=== PATIENT | male | born 1970 | race Caucasian/White ===

== ENCOUNTER 2024-01-03 12:25 | Emergency (ER) | payer OTHER, SELFPAY ==
--- NOTE | 2024-01-03 12:34 | ED.GENMED ---
ED Provider Triage
<Rebekah Estrella PA-C - Last Filed: 01/03/24 12:38>
-
Patient seen by provider in Triage?: Seen in Triage
Attestation: A medical screening examination has been initiated by a qualified medical provider. Based on the assessment performed at this time, it has been determined that an emergent medical condition may exist and the patient has been informed
that further medical evaluation and possible additional diagnostic testing may be needed.
HPI: 53yoM here with lightheadedness, chest pressure, and fatigue since yesterday. Feels like heart is racing intermittently. Sent here by urgent care. Hx of HLD on Lipitor.
GENERAL: Alert , in no apparent distress
EYE: No visual abnormalities.
NECK: Trachea midline
ENT: No visible abnormalities.
LUNGS: No acute respiratory distress
NEUROLOGICAL: Alert and oriented
SKIN: Skin intact. No visible changes.
MUSCULOSKELETAL: Moving extremities normally
PSYCH: Normal and appropriate interaction.
This is a medical evaluation conducted in person to initiate diagnostic evaluation and provide initial therapeutics. Please see further documentation by the treating clinician.
Cardiac labs, magnesium, TSH, EKG, and CXR ordered.
History of Present Illness
<Rebekah Estrella PA-C - Last Filed: 01/03/24 12:38>
General
Chief Complaint: Chest Pain
Time Seen by Provider: 01/03/24 15:33
<Kumar Torres DO - Last Filed: 01/03/24 19:27>
History of Present Illness
History of Present Illness:
TIME OF INITIAL ENCOUNTER: 3:30 PM
HPI:
Yesterday, the patient's been having lightheadedness as well as some intermittent chest pressure for the past 30 hours. At times symptoms are related to exertion. He currently still has a little bit of discomfort in the chest. He has a history of
hyperlipidemia but does not have a history of hypertension. He thinks that his mother had a cardiac episode in her 70s. He had some associated palpitations as well.
EXAM:
GENERAL: Well appearing in no distress, athletic build, very well-appearing
HEENT: Moist oral mucosa
CARDIOVASCULAR: No murmurs, normal heart rate, regular rhythm, No chest wall tenderness
PULMONARY: No respiratory distress, breath sounds are clear and equal
ABDOMEN: Soft with no peritoneal signs, no tenderness
NEUROLOGIC: Excellent strength all extremities, no coordination deficits
PSYCHIATRIC: Appropriate mental status, normal insight and judgement
EXTREMITIES: Nontender, no edema, moves all extremities equally
SKIN: No rash, no lesions
NUMBER AND COMPLEXITY OF PROBLEMS ADDRESSED AT THE ENCOUNTER
� Chronic conditions affecting care: Hypercholesterolemia
� Acute Exacerbation and/or Progression of Chronic Illness: This is an acute problem
� Differential Diagnosis includes: Stress, anxiety, chest wall pain, ACS, pneumonia, pneumothorax
AMOUNT AND/OR COMPLEXITY OF DATA TO BE REVIEWED AND ANALYZED
� I performed an independent evaluation of and my interpretation is:
EKG: Sinus 71, normal axis, no acute ST abnormality, LVH suggested based on R waves in V4 through V6
CT:
X-rays: Chest x-ray unremarkable
Laboratory Studies: CBC, total bili slightly elevated 2.2 with normal transaminases, troponin and TSH unremarkable
Other:
� Review of other/old records: No old records available for review in [facility]
� Clinical information was obtained by an independent historian: I spoke to the at bedside
� Prescriptions/Medications Considered but not given:
� Further testing considered but not performed:
RISK OF COMPLICATIONS AND/OR MORBIDITY OR MORTALITY OF PATIENT MANAGEMENT
� Social determinants of health affecting care: Lives at home
� Discussion with other providers:
� Escalation of care including admission/observation vs risk of discharge considered: Initial troponin EKG relatively unremarkable with exception of LVH. Checking second troponin.
ANY OTHER UPDATES:
4:50 PM: Second troponin negative. Patient has no significant change in his clinical examination and appears very well. To follow-up with cardiology closely as an outpatient.
Phy Exam
<Kumar Torres DO - Last Filed: 01/03/24 19:27>
Physical Exam
Physical Exam:
See HPI
Scores
<Kumar Torres DO - Last Filed: 01/03/24 19:27>
Heart Score for Chest Pain Patients
STEMI patient?: Not applicable
Course
<Rebekah Estrella PA-C - Last Filed: 01/03/24 12:38>
Orders/Labs/Results
Orders:
Orders
01/03/24 12:27
Electrocardiogram (*1) Urgent
Reason for Study: Chest Pain
EKG- Treatment ONCE
01/03/24 12:37
CR Chest - 2 Views Urgent
Comment:
Reason For Exam: CP
01/03/24 12:44
Complete Blood Count/With Diff Urgent
Comprehensive Metabolic Panel Urgent
Magnesium Urgent
TSH Reflex To Free T4 Urgent
Troponin I Urgent
01/03/24 15:59
Troponin I Urgent
Abnormal Lab Results
01/03/24
12:44
RBC 4.69 L 10^6/uL
(4.70-6.10)
Carbon Dioxide 31 H mmol/L
(22-30)
Glucose 104 H mg/dl
(70-99)
Total Bilirubin 2.2 H mg/dl
(0.2-1.3)
01/03/24 12:44
01/03/24 12:44
Vital Signs
Initial and Last Documented VS:
Initial Vital Signs
Temp Pulse Resp BP Pulse Ox
99.4 F 91 16 118/80 98
01/03/24 12:35 01/03/24 12:35 01/03/24 12:35 01/03/24 12:35 01/03/24 12:35
Last Documented Vital Signs
Temp Pulse Resp BP Pulse Ox
99.4 F 86 18 125/78 99
01/03/24 12:35 01/03/24 16:00 01/03/24 16:00 01/03/24 16:00 01/03/24 16:00
<Kumar Torres, DO - Last Filed: 01/03/24 19:27>
Orders/Labs/Results
Orders:
Orders
01/03/24 12:27
Electrocardiogram (*1) Urgent
Reason for Study: Chest Pain
EKG- Treatment ONCE
01/03/24 12:37
CR Chest - 2 Views Urgent
Comment:
Reason For Exam: CP
01/03/24 12:44
Complete Blood Count/With Diff Urgent
Comprehensive Metabolic Panel Urgent
Magnesium Urgent
TSH Reflex To Free T4 Urgent
Troponin I Urgent
01/03/24 15:59
Troponin I Urgent
Abnormal Lab Results
01/03/24
12:44
RBC 4.69 L 10^6/uL
(4.70-6.10)
Carbon Dioxide 31 H mmol/L
(22-30)
Glucose 104 H mg/dl
(70-99)
Total Bilirubin 2.2 H mg/dl
(0.2-1.3)
01/03/24 12:44
01/03/24 12:44
Vital Signs
Initial and Last Documented VS:
Initial Vital Signs
Temp Pulse Resp BP Pulse Ox
99.4 F 91 16 118/80 98
01/03/24 12:35 01/03/24 12:35 01/03/24 12:35 01/03/24 12:35 01/03/24 12:35
Last Documented Vital Signs
Temp Pulse Resp BP Pulse Ox
99.4 F 86 18 125/78 99
01/03/24 12:35 01/03/24 16:00 01/03/24 16:00 01/03/24 16:00 01/03/24 16:00
<Kumar Torres DO - Last Filed: 01/03/24 19:27>
*Critical Care Note
Total Time (30-74mins, 75-104mins- exclusive of procedures): Not Applicable
ED Attending Note
<Rebekah Estrella PA-C - Last Filed: 01/03/24 12:38>
-
Portions of this chart may have been created with voice recognition software.� Occasional wrong word or��sound alike� substitutions may have occurred due to the inherent limitations of voice recognition software.
Discharge Plan
Departure
Patient Disposition: Home (Routine Discharge)
Date of Disposition: 01/03/24
Time of Disposition: 16:47
Patient with high blood pressure during this ER visit?: Yes
Discharge Problem:
Chest pain
Instructions: Chest Pain CBC Follow Up, BLOOD PRESSURE
Referrals:
Silvano Hobbs MD (Ellie) [Active] - Next open appointment
Shasta Morales MD [Family Provider] -
Activity Restrictions/Additional Instructions:
Someone from Dr. Hobbs's office should be calling you for follow-up. If you not hear from them, call their office. Return here if worse or other concerns.
Interventions
Interventions:
*Risk Screen - Suicide Last Done: 01/03/24 12:35
*General Assessment Last Done: 01/03/24 12:35
*Neglect/Abuse Screening Last Done: 01/03/24 12:35
*Nursing Disposition Last Done: 01/03/24 17:15
ED- Cardiac Assessment Last Done: 01/03/24 16:01
Discharge Date and Time
Discharge Date/Time: 01/03/24 17:16
Print Language: SOMALI
[2024-01-03 12:35] VITALS: BP 118/80
[2024-01-03 12:52] LABS: % Basophils 0.4 % (0-2); % Immature Granulocytes 0.3 % (0-0.5); % Lymphocytes 39.8 % (20.5-51.1); % Monocytes 5.8 % (1.7-9.3); % Neutrophils 52.7 % (42.2-75.2); Absolute Eosinophils 0.1 10^3/uL (0-0.7); Absolute Lymphocytes 2.8 10^3/uL (1.2-3.4); Absolute Monocytes 0.4 10^3/uL (0.1-0.6); Absolute Neutrophils 3.7 10^3/uL (1.4-6.5); Hematocrit 41.7 % (39.0-52.0); Hemoglobin 14.4 g/dL (13.0-18.0); Mean Corp Hgb Conc. 34.5 g/dL (33.0-37.0); Mean Corpuscular Hgb 30.7 pg (27.0-31.0); Mean Corpuscular Volume 88.9 fL (80.0-94.0); Mean Platelet Volume 9.1 fL (7.4-10.4); Nucleated Red Blood Cells % 0 % (-); Platelet Count 223 10^3/uL (130-400); Red Blood Cell Count 4.69 10^6/uL (4.70-6.10); Red Cell Dist. Width 12.2 % (11.5-14.5); White Blood Cell Count 6.9 10^3/uL (4.8-10.8)
[2024-01-03 13:05] LABS: ALT (SGPT) 28 U/L (0-50); AST (SGOT) 30 U/L (17-59); Albumin 4.7 g/dl (3.5-5.0); Alkaline Phosphatase 49 U/L (38-126); Blood Urea Nitrogen 14 mg/dl (9-20); Calcium 9.4 mg/dl (8.4-10.2); Carbon Dioxide 31 mmol/L (22-30); Chloride 100 mmol/L (98-107); Glucose 104 mg/dl (70-99); Magnesium 1.9 mg/dl (1.6-2.3); Potassium 4.4 mmol/L (3.5-5.1); Sodium 141 mmol/L (135-145); Total Bilirubin 2.2 mg/dl (0.2-1.3); Total Protein 7.6 g/dl (6.3-8.2); eGFR > 60.00
[2024-01-03 13:16] LABS: Troponin I < 0.012 ng/ml
[2024-01-03 13:35] LABS: TSH Reflex To Free T4 2.07 uIU/ml (0.47-4.68)
[2024-01-03 16:00] VITALS: BP 125/78
[2024-01-03 16:38] LABS: Troponin I < 0.012 ng/ml
== END 2024-01-03 17:16 | disposition home or self-care (01) ==
LOC: EMR 12:25
PROVIDERS: Physician Assistant; EMERGENCY PHYSICIAN Emergency Medicine; FAMILY PHYSICIAN Internal Medicine
DX: R07.89 Other chest pain (principal); E78.00 Pure hypercholesterolemia, unspecified
CPT/HCPCS: 99283; 71046; 80053; 83735; 84443; 84484; 85025; 93005

== ENCOUNTER → 2024-01-18 14:52 | Outpatient (REF) | payer OTHER, SELFPAY | LOC: HWRCS 14:52 | PROVIDERS: ATTENDING PHYSICIAN Internal Medicine; FAMILY PHYSICIAN Internal Medicine | DX: R07.9 Chest pain, unspecified (principal) | CPT/HCPCS: 93306 ==

== ENCOUNTER → 2024-01-25 08:15 | Outpatient (REF) | payer OTHER, SELFPAY | LOC: RCS 08:15 | PROVIDERS: ATTENDING PHYSICIAN Internal Medicine; FAMILY PHYSICIAN Internal Medicine | DX: R07.9 Chest pain, unspecified (principal) | CPT/HCPCS: 93017; 93350 ==